=== PATIENT | male | born 1995 | race Asian ===

== ENCOUNTER 2016-07-07 05:18 | Emergency (ER) | payer OTHER ==
[~2016-07-07] VITALS: Ht 177.8 cm; Wt 71.4 kg
[2016-07-07 05:20] VITALS: TEMP 36.3; Ht 177.8 cm; Wt 71.4 kg
[2016-07-07] MEDS ORDERED: ACETAMINOPHEN 500 MG TAB PO STA (05:34)
[2016-07-07] MEDS ORDERED: IBUPROFEN 600 MG TAB PO STA (05:34)
--- NOTE | 2016-07-07 07:13 | DIAGNOSTIC IMAGING REPORT ---
TESTICULAR ULTRASOUND HISTORY: right testicle pain/swelling COMPARISON: None. FINDINGS: Right testis: 3.7 x 2.3 x 2.9 cm. There are no intratesticular masses. Normal color flow. No hydrocele. The epididymis is unremarkable. There are few punctate microliths. Increased echogenicity/thickening adjacent to the right testicle. This could represent prominent fat at this location. No increased vascularity. No definite scrotal wall thickening.. Left testis: 4.5 x 2.2 x 2.9 cm. There are no intratesticular masses. Normal color flow. No hydrocele. The epididymis is unremarkable. There are few punctate microliths. IMPRESSION: 1. A few scattered bilateral testicular microliths. No testicular masses. 2. There is an area of increased echogenicity/thickening surrounding the right testis which could represent prominent fat. Clinical correlation recommended to assess for a right inguinal hernia. Electronically signed by: Ludwin Arana M.D. 07/07/2016 7:11 AM Dictated Date/Time: 07/07/2016 7:07 AM
[2016-07-07 07:59] VITALS: BP 122/66; PULSE 66; O2SAT 97
--- NOTE | 2016-07-08 00:14 | EMERGENCY ROOM VISIT NOTE ---
History First contact with patient: 05:27 Chief Complaint: TESTICULAR PAIN Stated Complaint: FEEL UNCOMFORTABLE RIGHT SIDE OF PENIS Nursing Triage Summary: c/o right testicular pain since 0230 denies injury. History of Present Illness The patient is a 20 year old male who presents to the Emergency Room with complaints of right testicular pain for the past 3 hours. The patient does not have injury or trauma. He went to sleep feeling well, but as he got up swimming he started having his discomfort. The patient has been exercising and working out regularly at the gym. He has been doing more vigorous activity. He does not have fever or chills. He does not have concern for sexual transmitted diseases as he had a fairly recent STD panel that was negative. The patient has not had similar symptoms in the past. He rates his discomfort a 3/10 that really only worsens with certain positions. Review of Systems More than 10 systems were reviewed and otherwise negative with the exception of history of present illness. Past Medical/Surgical History No chronic medical disease Family History No pertinent family history Social History Smoking Status: Never Smoker Occupation Status: [employer] student Current/Historical Medications No Active Prescriptions or Reported Meds Allergies Coded Allergies: No Known Allergies (Unverified , 07/07/16) Physical Exam Vital Signs Date Time Temp Pulse Resp B/P Pulse Ox O2 Delivery O2 Flow Rate FiO2 07/07/16 07:59 66 16 122/66 97 Room Air 07/07/16 06:54 67 18 127/69 97 Room Air 07/07/16 05:20 36.3 76 16 142/81 99 Room Air Pain Rating (0-10): 0 Physical Exam VITALS: Vitals are noted on the nurse's note and reviewed by myself. Vital signs stable. GENERAL: Well-developed, well-nourished, male, who is in no acute distress and resting comfortably. Patient is cooperative with the examination. HEAD: Normocephalic atraumatic. HEART: Regular rate and rhythm without murmurs gallops or rubs. LUNGS: Clear to auscultation bilaterally without wheezes, rales or rhonchi. No retractions or accessory muscle use. ABDOMEN: Positive normal bowel sounds x 4. Soft, nontender, without masses or organomegaly. No guarding or rebound tenderness. : Normal-appearing uncircumcised phallus without urethral drainage or discharge. No lesions appreciated. The right scrotal sac is slightly tender and edematous. MUSCULOSKELETAL: No muscle atrophy, erythema, or edema noted. Full range of motion without joint tenderness in all extremities. Medical Decision & Procedures ER Provider Diagnostic Interpretation: TESTICULAR ULTRASOUND HISTORY: right testicle pain/swelling COMPARISON: None. FINDINGS: Right testis: 3.7 x 2.3 x 2.9 cm. There are no intratesticular masses. Normal color flow. No hydrocele. The epididymis is unremarkable. There are few punctate microliths. Increased echogenicity/thickening adjacent to the right testicle. This could represent prominent fat at this location. No increased vascularity. No definite scrotal wall thickening.. Left testis: 4.5 x 2.2 x 2.9 cm. There are no intratesticular masses. Normal color flow. No hydrocele. The epididymis is unremarkable. There are few punctate microliths. IMPRESSION: 1. A few scattered bilateral testicular microliths. No testicular masses. 2. There is an area of increased echogenicity/thickening surrounding the right testis which could represent prominent fat. Clinical correlation recommended to assess for a right inguinal hernia. Medications Administered Medications (Trade) Dose Ordered Sig/Debbie Route Start Time Stop Time Status Last Admin Dose Admin Acetaminophen (Tylenol Tab) 1,000 mg NOW STAT PO 07/07/16 05:34 07/07/16 05:35 DC 07/07/16 05:45 1,000 MG Ibuprofen (Motrin Tab) 600 mg NOW STAT PO 07/07/16 05:34 07/07/16 05:35 DC 07/07/16 05:45 600 MG ED Course Physical exam and history were performed. Nursing notes and EMR were reviewed. Patient appears to have right testicle pain for the past few hours. The patient was provided ibuprofen and Tylenol here in the department. Ultrasound was performed and does not show evidence of torsion or infection. There was question about a possible right inguinal hernia. I reevaluated the patient, and he clinically appears to have a small right inguinal hernia on examination. This certainly does not appear strangulated. I suspect that his symptoms have been brought on by an increase in physical activity and working out at the gym. I will provide him information to follow with a general surgeon for further care and evaluation. He was otherwise invited back to ER with any new, worsening, or concerning symptoms. He voiced understanding and rated his discomfort a 0/10 at the time of departure. The chart was completed utilizing [employer] Speech Voice Recognition Software. Grammatical errors, random word insertions, pronoun errors, and incomplete sentences are an occasional consequence of this system due to software limitations, ambient noise, and hardware issues. Any formal questions or concerns about the content, text, or information contained within the body of this dictation should be directly addressed to the provider for clarification. . Medical Decision Differential diagnosis: Etiologies such as torsion, mass, infection, hernia, hydrocele, epididymitis, trauma, intra-abdominal process, as well as others were entertained. Impression Primary Impression: Testicle pain Additional Impression: Inguinal hernia Departure Information Dispostion Home / Self-Care Condition GOOD Prescriptions No Active Prescriptions or Reported Meds Referrals Levy Ying D.O. Forms HOME CARE DOCUMENTATION FORM, IMPORTANT VISIT INFORMATION Patient Instructions My [facility] Additional Instructions You were seen and evaluated today on an emergency basis only. This is not a substitute for, or an effort to provide, complete comprehensive medical care. It is not possible to recognize and treat all injuries or illnesses in a single emergency department visit. For this reason it is recommended that you followup with Gen. surgery, Dr. Ying's office, for ongoing care and evaluation. For baseline pain relief you may alternate ibuprofen and acetaminophen every 4 hours for pain control. Take 600 mg ibuprofen (Advil) and then 4 hours later take 1000 mg acetaminophen (Tylenol). Do not take more than 3000 mg acetaminophen in a single day. Avoid heavy lifting until seen and cleared by surgery. You are welcome to return to the emergency department anytime with new, worsening, or concerning symptoms. Problem Qualifiers
== END 2016-07-07 08:05 | disposition home or self-care (01) ==
LOC: C.EDB 05:19
DX: N50.89 Other specified disorders of the male genital organs (principal); K40.90 Unilateral inguinal hernia, without obstruction or gangrene, not specified as recurrent